=== PATIENT | male | born 1965 | race Caucasian/White ===

== ENCOUNTER → 2017-12-21 | Outpatient (CLI) | payer OTHER ==
[~2017-12-21] MED LIST: IOPAMIDOL (ISOVUE-300) 100 ML BTL ONE
== END ==
LOC: FIMAGING 17:36
PROVIDERS: ATTEND Internal Medicine
DX: N20.2 Calculus of kidney with calculus of ureter (principal); N13.8 Other obstructive and reflux uropathy; N28.89 Other specified disorders of kidney and ureter
CPT/HCPCS: Q9967

== ENCOUNTER → 2018-01-28 | Outpatient (CLI) | payer OTHER | LOC: FIMAGING 07:14 | PROVIDERS: ATTEND Urology | DX: Z09 Encounter for follow-up examination after completed treatment for conditions other than malignant neoplasm (principal); Z98.890 Other specified postprocedural states ==

== ENCOUNTER → 2018-03-04 | Outpatient (CLI) | payer OTHER | LOC: BMCIMAGING 07:17 | PROVIDERS: ATTEND Urology | DX: Z12.31 Encounter for screening mammogram for malignant neoplasm of breast (principal) ==

== ENCOUNTER → 2018-04-27 | Outpatient (CLI) | payer OTHER | LOC: BMCIMAGING 12:17 | PROVIDERS: ATTEND Orthopaedic Surgery Hand Surgery | DX: M25.532 Pain in left wrist (principal) ==

== ENCOUNTER → 2018-07-12 | Outpatient (CLI) | payer OTHER | LOC: BMCIMAGING 11:53 | PROVIDERS: ATTEND Chiropractor | DX: M54.89 Other dorsalgia (principal); I65.22 Occlusion and stenosis of left carotid artery ==